=== PATIENT | male | born 1990 | race Caucasian/White ===

== ENCOUNTER 2020-07-25 14:47 | Emergency (ER) | payer OTHER ==
[2020-07-25 15:02] VITALS: BP 132/68
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
== END 2020-07-25 16:00 | disposition home or self-care (01) ==
LOC: ED 14:47
DX: S16.1XXA Strain of muscle, fascia and tendon at neck level, initial encounter (principal); V18.0XXA Pedal cycle driver injured in noncollision transport accident in nontraffic accident, initial encounter; Y93.55 Activity, bike riding
CPT/HCPCS: 72125; 99284